=== PATIENT | female | born 1970 | race Two or more races ===

== ENCOUNTER 2016-11-01 19:10 | Emergency (ER) | payer MEDICAID ==
[~2016-11-01] VITALS: Ht 154.9 cm; Wt 66.7 kg
[~2016-11-01 19:10] MED LIST: ANTIBIOTICS; IBUP1POW8 PO; PREMARIN PO; SIMVPOW2 PO
[2016-11-01 19:53] LABS: Basophils # (auto) 0 uL; Basophils % (auto) 0.5 % (0.0-2.0); Eosinophils # (auto) 0.2 uL; Eosinophils % (auto) 1.9 % (0.0-7.0); Hematocrit 43.3 % (36.0-46.0); Lymphocytes # (auto) 4.7 uL; Lymphocytes % (auto) 48.9 % (10.0-50.0); Mean Corpuscular Hemoglobin 28.9 pg (28.0-32.0); Mean Corpuscular Hgb Conc. 32.2 g/dL (32.0-36.0); Mean Corpuscular Volume 89.6 fL (80.0-100.0); Mean Platelet Volume 7.7 fL (7.4-10.4); Monocytes # (auto) 0.8 uL; Neutrophils # (auto) 3.9 uL; Neutrophils % (auto) 40.7 % (37.0-80.0); Platelet Count (auto) 398 10^3/uL (140-450); Red Cell Distribution Width 13.1 % (11.6-16.0); White Blood Cell 9.7 10^3/uL (4.4-10.8)
[2016-11-01 20:24] LABS: Albumin 4.1 g/dL (3.4-5.0); BUN/Creatinine Ratio 20.5; Potassium 4.1 mmol/L (3.5-5.1)
[2016-11-01 20:27] LABS: Bilirubin, Total 0.1 mg/dL (0.2-1.0); Total Protein 8.5 g/dL (6.4-8.2)
[2016-11-01 20:27] LABS: Urine Bilirubin Negative (Negative); Urine Color Yellow (Yellow); Urine Glucose Normal (Normal); Urine Ketone Negative (Negative); Urine Nitrite Negative (Negative); Urine RBC 90 /hpf (0 - 4); Urine Squamous Epithelial Cell FEW /hpf (<5); Urine Urobilinogen Normal (Negative)
[2016-11-01 20:39] LABS: Urine Blood 2+ /uL (Negative)
[2016-11-01 20:48] VITALS: BP 135/88
[2016-11-01] MEDS ORDERED: LIDOCAINE HCL 2% TOP JELLY 5ML TOP ONE (20:59)
[2016-11-01] MEDS ORDERED: cefTRIAXone SOD 1,000 MG VL IM ONE (21:15)
[2016-11-01] MEDS ORDERED: KETOROLAC TROMETH 60MG/2ML VIAL IM ONE (21:15)
== END 2016-11-01 21:34 | disposition home or self-care (01) ==
LOC: ER 19:15
DX: R31.9 Hematuria, unspecified (principal); N39.0 Urinary tract infection, site not specified; N36.9 Urethral disorder, unspecified; E78.5 Hyperlipidemia, unspecified; E07.9 Disorder of thyroid, unspecified; Z90.710 Acquired absence of both cervix and uterus; Z90.89 Acquired absence of other organs; Z87.440 Personal history of urinary (tract) infections; Z88.2 Allergy status to sulfonamides; Z88.3 Allergy status to other anti-infective agents
CPT/HCPCS: 36415; 80053; 81001; 84702; 85025; 96372; 99284; J0696; J1885

== ENCOUNTER → 2017-08-25 | Day surgery (SDC) | payer MEDICAID ==
[2017-08-24 12:44] LABS: Basophils # (auto) 0.1 uL; Basophils % (auto) 1.2 % (0.0-2.0); Eosinophils # (auto) 0.3 uL; Eosinophils % (auto) 3.1 % (0.0-7.0); Hematocrit 41.2 % (36.0-46.0); Hemoglobin 13.8 g/dL (12.2-16.2); Lymphocytes # (auto) 3.4 uL; Lymphocytes % (auto) 40.8 % (10.0-50.0); Mean Corpuscular Hemoglobin 30.5 pg (28.0-32.0); Mean Corpuscular Hgb Conc. 33.6 g/dL (32.0-36.0); Mean Corpuscular Volume 90.9 fL (80.0-100.0); Mean Platelet Volume 8.4 fL (6.9-10.8); Monocytes # (auto) 0.8 uL; Monocytes % (auto) 9.1 % (0.0-12.0); Neutrophils # (auto) 3.8 uL; Neutrophils % (auto) 45.8 % (37.0-80.0); Nucleated Red Blood Cells % 0.1 %; Platelet Count (auto) 336 10^3/uL (140-450); Red Cell Distribution Width 13.2 % (11.8-14.3); White Blood Cell 8.4 10^3/uL (4.4-10.8)
[2017-08-24 12:53] LABS: Urine Bilirubin Negative (Negative); Urine Blood 1+ /uL (Negative); Urine Color Yellow (Yellow); Urine Glucose Normal (Normal); Urine Ketone Negative (Negative); Urine Mucus FEW (None Seen); Urine Nitrite Negative (Negative); Urine RBC 3 /hpf (0 - 4); Urine Squamous Epithelial Cell FEW /hpf (<5); Urine Urobilinogen Normal (Negative); Urine pH 6.5 (5.0-8.0)
[2017-08-24 13:00] LABS: INR 0.92 (0.9-1.15); Partial Thromboplastin Time 23.9 sec (22.64-33.71)
[2017-08-24 13:28] LABS: Bilirubin, Total 0.3 mg/dL (0.2-1.0); Calcium 9.2 mg/dL (8.5-10.1); Total Protein 8.2 g/dL (6.4-8.2)
[~2017-08-25] VITALS: Ht 154.9 cm; Wt 65.8 kg
[~2017-08-25] MED LIST changes: -ANTIBIOTICS; +CONJ ESTROGENS 0.625MG/GM VAG CRM 30GM PV ONE; +CONJ ESTROGENS 0.625MG/GM VAG CRM 30GM PV SCH; +DEXAMETHASONE SOD PHOS 10MG/1ML VIAL INJ ONE; +ERGO1CAP23 PO; +HYDROmorphone HCL 2 MG/ML VL IV PRN; -IBUP1POW8 PO; +IBUP800T24 PO; +KETOROLAC TROMETH 30 MG/ML 1ML VIAL IV ONE; +KETOROLAC TROMETH 30 MG/ML 1ML VIAL ONE; +LABETALOL HCL 5 MG/ML 4ML SYRINGE IV PRN; +LEV50T PO; +MIDAZOLAM HCL 1MG/1ML-2 ML VIAL IV PRN; +MIDAZOLAM HCL 1MG/1ML-2 ML VIAL ONE; +MORPHINE SULF INJ 2 MG/ML SYRINGE 1ML IV ONE; +ONDANSETRON HCL 4 MG/2 ML VIAL IV ONE; -PREMARIN PO; +PROPOFOL 10 MG/ML 20 ML IV ONE; +SILVER NITRATE-POTAS NITRA STICK TOP ONE; +SIMV-13 PO; -SIMVPOW2 PO; +ceFAZolin 1GM/50ML 50 ML IV ONE; +ePHEDrine SULFATE 50 MG/ML AMP IV PRN; +fentaNYL CITRATE 100 MCG/2 ML VL ONE
[2017-08-25 18:15] VITALS: BP 113/68
== END | disposition home or self-care (01) ==
LOC: SUR 12:17
PROVIDERS: ATTEND Urology
DX: N28.89 Other specified disorders of kidney and ureter (principal); N39.0 Urinary tract infection, site not specified; Z88.1 Allergy status to other antibiotic agents; Z88.2 Allergy status to sulfonamides; Z88.3 Allergy status to other anti-infective agents; Z90.710 Acquired absence of both cervix and uterus; Z90.721 Acquired absence of ovaries, unilateral; C55 Malignant neoplasm of uterus, part unspecified
CPT/HCPCS: 17250; 52000; J3010; 36415; 80053; 81001; 85025; 85610; 85730; J0690; J1100; J1885; J2250; J2704

== ENCOUNTER 2018-03-08 09:36 | Day surgery (SDC) | payer MEDICAID ==
[2018-03-04 10:08] LABS: Urine Bacteria FEW /hpf (None Seen); Urine Blood Negative /uL (Negative); Urine Mucus FEW (None Seen); Urine WBC 13 /hpf (0 - 5)
[2018-03-04 10:09] LABS: Basophils # (auto) 0.1 uL; Basophils % (auto) 0.7 % (0.0-2.0); Eosinophils # (auto) 0.2 uL; Hematocrit 40.9 % (36.0-46.0); Hemoglobin 13.7 g/dL (12.2-16.2); Lymphocytes # (auto) 4.2 uL; Lymphocytes % (auto) 50.2 % (10.0-50.0); Mean Corpuscular Hemoglobin 30.2 pg (28.0-32.0); Mean Corpuscular Hgb Conc. 33.5 g/dL (32.0-36.0); Mean Corpuscular Volume 90.2 fL (80.0-100.0); Monocytes # (auto) 0.8 uL; Monocytes % (auto) 9.2 % (0.0-12.0); Neutrophils # (auto) 3.2 uL; Neutrophils % (auto) 37.9 % (37.0-80.0); Nucleated Red Blood Cells % 0.1 %; Platelet Count (auto) 357 10^3/uL (140-450); Red Blood Cells 4.53 10^6/uL (4.0-5.20); Red Cell Distribution Width 12.7 % (11.8-14.3); White Blood Cell 8.4 10^3/uL (4.4-10.8)
[2018-03-04 10:35] LABS: BUN/Creatinine Ratio 32.4; Bilirubin, Total 0.2 mg/dL (0.2-1.0); Potassium 4.1 mmol/L (3.5-5.1); Total Protein 8.2 g/dL (6.4-8.2)
[2018-03-04 10:57] LABS: INR 0.9 (0.9-1.15); Partial Thromboplastin Time 24.6 sec (23.78-33.04); Prothrombin Time 9.7 sec (9.27-12.13)
[~2018-03-08] VITALS: Ht 154.9 cm; Wt 64.4 kg
[~2018-03-08 09:36] MED LIST changes: -CONJ ESTROGENS 0.625MG/GM VAG CRM 30GM PV ONE; -CONJ ESTROGENS 0.625MG/GM VAG CRM 30GM PV SCH; -DEXAMETHASONE SOD PHOS 10MG/1ML VIAL INJ ONE; -ERGO1CAP23 PO; -HYDROmorphone HCL 2 MG/ML VL IV PRN; -IBUP800T24 PO; -KETOROLAC TROMETH 30 MG/ML 1ML VIAL IV ONE; -KETOROLAC TROMETH 30 MG/ML 1ML VIAL ONE; -LABETALOL HCL 5 MG/ML 4ML SYRINGE IV PRN; -MIDAZOLAM HCL 1MG/1ML-2 ML VIAL IV PRN; -MIDAZOLAM HCL 1MG/1ML-2 ML VIAL ONE; -MORPHINE SULF INJ 2 MG/ML SYRINGE 1ML IV ONE; -ONDANSETRON HCL 4 MG/2 ML VIAL IV ONE; -PROPOFOL 10 MG/ML 20 ML IV ONE; -SILVER NITRATE-POTAS NITRA STICK TOP ONE; -SIMV-13 PO; -ceFAZolin 1GM/50ML 50 ML IV ONE; -ePHEDrine SULFATE 50 MG/ML AMP IV PRN; -fentaNYL CITRATE 100 MCG/2 ML VL ONE
[2018-03-08] MEDS ORDERED: fentaNYL CITRATE 100 MCG/2 ML VL ONE (13:09)
[2018-03-08] MEDS ORDERED: MIDAZOLAM HCL 1MG/1ML-2 ML VIAL ONE (13:09)
[2018-03-08] MEDS ORDERED: PROPOFOL 10 MG/ML 20 ML IV ONE (13:12)
[2018-03-08] MEDS ORDERED: ceFAZolin 1GM/50ML 50 ML IV ONE (13:24)
[2018-03-08] MEDS ORDERED: LIDOCAINE W/ EPINEPHRINE 1% 20ML VIAL ONE (13:26)
[2018-03-08] MEDS ORDERED: fentaNYL CITRATE 100 MCG/2 ML VL IV PRN (14:00)
[2018-03-08] MEDS ORDERED: hydrALAZINE HCL 20 MG/ML VL IV PRN (14:00)
[2018-03-08] MEDS ORDERED: ePHEDrine SULFATE 50 MG/ML AMP IV PRN (14:00)
[2018-03-08] MEDS ORDERED: ONDANSETRON HCL 4 MG/2 ML VIAL IV ONE (14:00)
[2018-03-08 14:45] VITALS: BP 107/74
== END 2018-03-08 14:56 | disposition home or self-care (01) ==
LOC: SUR 09:36
PROVIDERS: ATTEND Urology
DX: N36.8 Other specified disorders of urethra (principal); E78.00 Pure hypercholesterolemia, unspecified; E03.9 Hypothyroidism, unspecified; Z90.710 Acquired absence of both cervix and uterus; Z88.1 Allergy status to other antibiotic agents; Z88.2 Allergy status to sulfonamides; Z79.891 Long term (current) use of opiate analgesic
CPT/HCPCS: 53200; J3010; 36415; 80053; 81001; 84702; 85025; 85610; 85730; J0690; J2250; J2704

== ENCOUNTER 2021-01-08 11:10 | Inpatient (IN) | payer MEDICAID, OTHER ==
[~2021-01-08] VITALS: Ht 154.9 cm; Wt 67.6 kg
[2021-01-08] MEDS ORDERED: ACETAMINOPHEN 325 MG TAB PO ONE (11:30)
[2021-01-08 12:25] LABS: Basophils # (auto) 0.1 10 ^3/uL (0-0.2); Basophils % (auto) 0.6 % (0.0-2.0); Eosinophils # (auto) 0 10 ^3/uL (0-0.8); Eosinophils % (auto) 0.1 % (0.0-7.0); Hematocrit 36.9 % (36.0-46.0); Hemoglobin 12.6 g/dL (12.2-16.2); Lymphocytes # (auto) 4.3 10 ^3/uL (0.4-5.4); Mean Corpuscular Hemoglobin 29.6 pg (28.0-32.0); Mean Corpuscular Hgb Conc. 34.3 g/dL (32.0-36.0); Mean Corpuscular Volume 86.4 fL (80.0-100.0); Monocytes # (auto) 1.1 10 ^3/uL (0-1.3); Monocytes % (auto) 9.3 % (0.0-12.0); Neutrophils # (auto) 6.1 10 ^3/uL (1.6-8.6); Nucleated Red Blood Cells % 0.2 %; Platelet Count (auto) 684 10^3/uL (140-450); Red Blood Cells 4.27 10^6/uL (4.0-5.20); Red Cell Distribution Width 13.7 % (11.8-14.3); White Blood Cell 11.5 10^3/uL (4.4-10.8)
[2021-01-08 12:45] LABS: Albumin 3.6 g/dL (3.4-5.0); Calcium 9.7 mg/dL (8.5-10.1); Potassium 3.9 mmol/L (3.5-5.1)
[2021-01-08 12:54] LABS: BUN/Creatinine Ratio 18.5; Bilirubin, Total 0.5 mg/dL (0.2-1.0); CRP High Sensitivity 8.18 mg/dL (< 0.3); Total Protein 8.6 g/dL (6.4-8.2)
[2021-01-08] MEDS ORDERED: AZITHROMYCIN 500MG/ 250ML 250 ML IV ONE (13:30)
[2021-01-08] MEDS ORDERED: CHOLECALCIFEROL (VITD3) 2,000 UNIT CAP/TAB PO ONE (13:30)
[2021-01-08] MEDS ORDERED: ASCORBIC ACID 500 MG TAB PO ONE (13:30)
[2021-01-08] MEDS ORDERED: methylPREDNISolone SOD SUCC 125 MG/2 ML VL IV ONE (13:30)
[2021-01-08] MEDS ORDERED: ZINC SULFATE 220mg CAP or TAB PO ONE (13:30)
[2021-01-08] MEDS ORDERED: IOHEXOL 350 MG/ML 100ML IJ ONE (13:45)
[2021-01-08] MEDS ORDERED: ONDANSETRON HCL 4 MG/2 ML VIAL IV PRN (14:00)
[2021-01-08] MEDS ORDERED: ACETAMINOPHEN 325 MG TAB PO PRN (14:00)
[2021-01-08] MEDS ORDERED: MORPHINE SULF INJ 2 MG/ML SYRINGE 1ML IV PRN ×2 (14:00)
[2021-01-08] MEDS ORDERED: NITROGLYCERIN 0.4 MG SL TAB SL PRN (14:00)
[2021-01-08 16:26] LABS: Urine Bacteria NONE SEEN /hpf (None Seen); Urine Blood Negative /uL (Negative); Urine Specific Gravity 1.005 (1.001-1.035); Urine WBC 2 /hpf (0 - 5)
[2021-01-08] MEDS ORDERED: FENO134C PO (16:57)
[2021-01-08] MEDS ORDERED: SUCR1TAB22 PO (16:57)
[2021-01-08] MEDS ORDERED: METF-370 PO (16:57)
[2021-01-08] MEDS ORDERED: PANT40TA2 PO (16:57)
[2021-01-08] MEDS ORDERED: CETI1TAB36 PO (16:57)
[2021-01-08] MEDS ORDERED: LEV50T PO (16:57)
[2021-01-08] MEDS ORDERED: LORA-622 PO (16:57)
[2021-01-08 17:02] VITALS: BP 106/74
[2021-01-08] MEDS: SUCRALFATE 1 GM/10 ML ORAL SUSP PO SCH (17:55)
[2021-01-08] MEDS: HYDROcodone-ACET 5/325MG TAB PO PRN (20:44)
[2021-01-08] MEDS: PANTOPRAZOLE 40 MG TAB PO SCH (20:44)
[2021-01-08 22:00] VITALS: BP 103/64
[2021-01-08] MEDS ORDERED: ALBUTEROL SULF HFA 90MCG INH 200DOSE IN SCH (22:00)
[2021-01-09 05:00] VITALS: BP 106/64
[2021-01-09] MEDS: SUCRALFATE 1 GM/10 ML ORAL SUSP PO SCH ×3 (06:02→16:55)
[2021-01-09 06:22] LABS: Potassium 4.3 mmol/L (3.5-5.1)
[2021-01-09 06:36] LABS: Albumin 3.2 g/dL (3.4-5.0); BUN/Creatinine Ratio 25.9; Bilirubin, Total 0.6 mg/dL (0.2-1.0); Calcium 9.1 mg/dL (8.5-10.1)
[2021-01-09 08:40] VITALS: BP 118/68
[2021-01-09] MEDS ORDERED: AZITHROMYCIN 500MG/ 250ML 250 ML IV SCH (10:00)
[2021-01-09] MEDS: ENOXAPARIN SOD 40 MG/0.4 ML SYRINGE SC SCH (10:00)
[2021-01-09] MEDS: PANTOPRAZOLE 40 MG TAB PO SCH ×2 (10:19→22:05)
[2021-01-09] MEDS: cefTRIAXone 1GM/50ML D5W 50 ML IV SCH (10:19)
[2021-01-09] MEDS: HYDROcodone-ACET 5/325MG TAB PO PRN ×3 (11:35→22:05)
[2021-01-09 12:30] VITALS: BP 102/64
[2021-01-09 16:49] VITALS: BP 99/71
[2021-01-09] MEDS ORDERED: levoFLOXacin 500 MG TAB PO ONE (17:30)
[2021-01-09 17:49] VITALS: BP 99/71
[2021-01-09] MEDS ORDERED: IBUPROFEN 600 MG TAB PO ONE (18:00)
[2021-01-09 22:27] VITALS: BP 104/68
[2021-01-10 05:11] VITALS: BP 97/67
[2021-01-10] MEDS: SUCRALFATE 1 GM/10 ML ORAL SUSP PO SCH ×3 (06:39→17:00)
[2021-01-10 06:42] LABS: Albumin 3.1 g/dL (3.4-5.0)
[2021-01-10 06:46] LABS: Bilirubin, Direct 0.1 mg/dL (0-0.2); Bilirubin, Total 0.3 mg/dL (0.2-1.0); Total Protein 7.4 g/dL (6.4-8.2)
[2021-01-10] MEDS: cefTRIAXone 1GM/50ML D5W 50 ML IV SCH (08:06)
[2021-01-10] MEDS: PANTOPRAZOLE 40 MG TAB PO SCH (08:06)
[2021-01-10] MEDS: ENOXAPARIN SOD 40 MG/0.4 ML SYRINGE SC SCH ×3 (08:06→10:00)
[2021-01-10 08:38] VITALS: BP 100/71
[2021-01-10] MEDS ORDERED: LEVOTHYROXINE SODIUM 50 MCG TAB PO ONE (08:45)
[2021-01-10 09:28] LABS: Hepatitis B Surface Antibody Positive
[2021-01-10 10:01] LABS: Hepatitis A Total Antibody Positive
[2021-01-10 11:13] LABS: Hepatitis B Core Total AB Negative
[2021-01-10 11:14] LABS: Hepatitis B Surface Antigen Negative (Negative); Hepatitis C Antibody Negative (Negative)
[2021-01-10 13:00] VITALS: BP 101/58
[2021-01-10 17:00] VITALS: BP 108/68
== END 2021-01-10 16:50 | disposition home or self-care (01) | DRG 139 ==
LOC: ER 11:10 → TELE 13:46 → TELE-EAST 15:03
PROVIDERS: ADMIT Internal Medicine; ATTEND Internal Medicine
DX: J18.9 Pneumonia, unspecified organism (principal); K76.0 Fatty (change of) liver, not elsewhere classified; E03.9 Hypothyroidism, unspecified; E11.9 Type 2 diabetes mellitus without complications; J98.11 Atelectasis; D72.829 Elevated white blood cell count, unspecified; K29.70 Gastritis, unspecified, without bleeding; R79.82 Elevated C-reactive protein (CRP); Z20.822 Contact with and (suspected) exposure to COVID-19; Z80.9 Family history of malignant neoplasm, unspecified; Z85.42 Personal history of malignant neoplasm of other parts of uterus; Z90.710 Acquired absence of both cervix and uterus; R91.1 Solitary pulmonary nodule; R79.89 Other specified abnormal findings of blood chemistry; Z88.2 Allergy status to sulfonamides; Z88.8 Allergy status to other drugs, medicaments and biological substances; R51.9 Headache, unspecified
CPT/HCPCS: 36415; 71045; 71275; 76705; 80053; 80076; 81001; 82728; 83605; 84484; 85025; 85379; 86141; 86704; 86706; 86708; 86803; 87040; 87086; 87340; 87426; 93005; 93306; 93970; 94640; 96365; 96375; G0378; J0696